=== PATIENT | female | born 2000 | race Caucasian/White ===

== ENCOUNTER 2019-06-10 10:36 | Inpatient (IN) | payer MEDICAID ==
--- NOTE | 2019-06-10 12:40 | PCM.LDHP ---
L&D History of Present Illness - General Date of Service: 06/10/19 Admit Problem/Dx: Patient Status Order with Admit Dx/Problem 06/10/19 10:45 Patient Status [ADT] Routine Admission Diagnosis/Problem Admission Diagnosis/Problem Source of Information: Patient History Limitations: Reports: No Limitations - History of Present Illness Improves with: Reports: None Worsens with: Reports: None Associated Symptoms: Reports: N - Related Data Allergies/Adverse Reactions: Allergies Allergy/AdvReac Type Severity Reaction Status Date / Time Sulfa (Sulfonamide Allergy Hives Verified 06/10/19 10:43 Antibiotics) Home Medications: Home Meds Vit #76/Iron,Carb/Fa [Pnv 29-1 Tablet] 1 tab PO DAILY 05/14/19 [History ] Sertraline [Zoloft] 100 mg PO DAILY 05/14/19 [History] H&P Review of Systems - Review of Systems: Review Of Systems: See Below General: Reports: No Symptoms HEENT: Reports: No Symptoms Pulmonary: Reports: No Symptoms Cardiovascular: Reports: No Symptoms Gastrointestinal: Reports: No Symptoms Genitourinary: Reports: No Symptoms Musculoskeletal: Reports: No Symptoms Skin: Reports: No Symptoms Psychiatric: Reports: No Symptoms Neurological: Reports: No Symptoms Hematologic/Lymphatic: Reports: No Symptoms Immunologic: Reports: No Symptoms L&D Exam - Exam Exam: See Below - Vital Signs Weight: 149.685 kg - OB Specific Contraction Intensity: Mild Movement: Active Heart Tones: Present Presentation: Vertex - Dickinson Score Dickinson Score Cervix Position: Midposition Dickinson Score Consistency: Medium Dickinson Score Effacement: 51-70% Dickinson Score Dilation: 1-2 cm Dickinson Score Infant's Station: -3 Dickinson Score Total: 5 - Exam General: Alert, Oriented HEENT: PERRLA, Conjunctiva Clear, EACs Clear, EOMI, Hearing Intact, Mucosa Moist & [place], Nares Patent, Normal Nasal Septum, Posterior Pharynx Clear, TMs Clear Neck: Supple, Trachea Midline Lungs: Clear to Auscultation, Normal Respiratory Effort Cardiovascular: Regular Rate, Regular Rhythm GI/Abdominal Exam: Normal Bowel Sounds, Soft, Non-Tender, No Organomegaly, No Distention, No Abnormal Bruit, No Mass, Pelvis Stable Rectal Exam: Normal Exam, Normal Rectal Tone Genitourinary: Normal external exam, Normal bimanual exam, Normal speculum exam Back Exam: Normal Inspection, Full Range of Motion Extremities: Normal Inspection, Normal Range of Motion, Non-Tender, No Pedal Edema, Normal Capillary Refill Skin: Warm, Dry, Intact Neurological: Cranial Nerves Intact, Reflexes Equal Bilateral Psychiatric: Alert, Normal Affect, Normal Mood Problem List Initiated/Reviewed/Updated: Yes Orders Last 24hrs: Active Orders 24 hr Category Date Time Status Patient Status [ADT] Routine ADT 06/10/19 10:45 Active Non Stress Test [RC] PER UNIT ROUTINE Care 06/10/19 10:45 Active Up ad Kalyn [RC] ASDIRECTED Care 06/10/19 10:45 Active Vaginal Exam [RC] Click to Edit Care 06/10/19 10:45 Active Vital Signs [RC] PER UNIT ROUTINE Care 06/10/19 10:45 Active Resuscitation Status Routine Resus Stat 06/10/19 10:45 Ordered Assessment/Plan Comment:: IUP 39+3 with SROM. plan to admit and start induction with Cytotec and Pitocin as per protocol.
[2019-06-10] MEDS ORDERED: Tranexamic Acid 1,000 MG in Sodium Chloride 0.9% 100 ML IV PRN (12:47)
[2019-06-10] MEDS ORDERED: Nalbuphine 10 MG/1 ML Vial IVPUSH PRN (12:47)
[2019-06-10] MEDS ORDERED: Methylergonovine 0.2 MG/1 ML Amp IM PRN (12:47)
[2019-06-10] MEDS ORDERED: Lidocaine 1% 50 ML MDV INJECT PRN (12:47)
[2019-06-10] MEDS ORDERED: Water For Irrigation,Sterile 1,000 ML Container IRR PRN (12:47)
[2019-06-10] MEDS ORDERED: Misoprostol 200 MCG Tab PO PRN (12:47)
[2019-06-10] MEDS ORDERED: Butorphanol 1 MG/ML SDV IVPUSH PRN (12:47)
[2019-06-10] MEDS ORDERED: Sodium Chloride 0.9% 10 ML Syringe FLUSH PRN (12:47)
[2019-06-10] MEDS ORDERED: Sodium Chloride 0.9% 10 ML SDV IV PRN (12:47)
[2019-06-10] MEDS ORDERED: Carboprost Tromethamine 250 MCG/1 ML Amp IM PRN (12:47)
[2019-06-10] MEDS ORDERED: Sodium Chloride 0.9% 2.5 ML Syringe FLUSH PRN (12:47)
[2019-06-10] MEDS ORDERED: Terbutaline 1 MG/ML SDV SUBCUT PRN (12:47)
[2019-06-10] MEDS ORDERED: Oxytocin/0.9 % Sodium Chloride 30 UNIT/500 ML BAG IV SCH ×2 (13:00)
[2019-06-10] MEDS: Lactated Ringers 1,000 ML IV SCH (13:45)
[2019-06-10] MEDS: Misoprostol 25 MCG (1/4 of 100 MCG) Tab PO PRN ×2 (13:55→18:21)
[2019-06-10] MEDS: Misoprostol 25 MCG (1/4 of 100 MCG) Tab VAG PRN ×2 (13:55→18:21)
[2019-06-11] MEDS: Lactated Ringers 1,000 ML IV SCH ×4 (03:36→18:07)
--- NOTE | 2019-06-11 04:39 | PCM.PREANE ---
Preanesthetic Assessment - Anesthesia/Transfusion/Family Hx Anesthesia History: No Prior Anesthesia Family History of Anesthesia Reaction: No Transfusion History: No Prior Transfusion(s) - Review of Systems General: No Symptoms Pulmonary: No Symptoms Cardiovascular: No Symptoms Gastrointestinal: No Symptoms Neurological: No Symptoms Other: Reports: None - Physical Assessment Height: 5 ft 3 in Weight: 149.685 kg ASA Class: 3 Mental Status: Alert & Oriented x3 Airway Class: Mallampati = 2 Dentition: Reports: Normal Dentition Thyro-Mental Finger Breadths: 3 Mouth Opening Finger Breadths: 3 ROM/Head Extension: Full Lungs: Clear to Auscultation, Normal Respiratory Effort Cardiovascular: Regular Rate, Regular Rhythm - Lab Values: Laboratory Last Values WBC 8.40 K/uL (4.0-11.0) 06/10/19 13:45 RBC 4.25 M/uL (4.30-5.90) L 06/10/19 13:45 Hgb 9.5 g/dL (12.0-16.0) L 06/10/19 13:45 Hct 31.5 % (36.0-46.0) L 06/10/19 13:45 MCV 74.1 fL (80.0-98.0) L 06/10/19 13:45 MCH 22.4 pg (27.0-32.0) L 06/10/19 13:45 MCHC 30.2 g/dL (31.0-37.0) L 06/10/19 13:45 RDW Std Deviation 42.6 fl (28.0-62.0) 06/10/19 13:45 RDW Coeff of Kay 16 % (11.0-15.0) H 06/10/19 13:45 Plt Count 357 K/uL (150-400) 06/10/19 13:45 MPV 9.20 fL (7.40-12.00) 06/10/19 13:45 Nucleated RBC % 0.0 /100WBC 06/10/19 13:45 Nucleated RBCs # 0 K/uL 06/10/19 13:45 Blood Type O POSITIVE 06/10/19 13:45 Antibody Screen NEGATIVE 06/10/19 13:45 Crossmatch See Detail 06/10/19 13:45 - Allergies Allergies/Adverse Reactions: Allergies Allergy/AdvReac Type Severity Reaction Status Date / Time Sulfa (Sulfonamide Allergy Hives Verified 06/10/19 10:43 Antibiotics) - Acknowledgements Anesthesia Type Planned: Epidural Pt an Appropriate Candidate for the Planned Anesthesia: Yes Alternatives and Risks of Anesthesia Discussed w Pt/Guardian: Yes Pt/Guardian Understands and Agrees with Anesthesia Plan: Yes PreAnesthesia Questionnaire - Past Health History Medical/Surgical History: Denies Medical/Surgical History HEENT History: Reports: Impaired Vision Cardiovascular History: Reports: None Respiratory History: Reports: None Gastrointestinal History: Reports: GERD Genitourinary History: Reports: None 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 Para: 0 LMP (Approximate): Musculoskeletal History: Reports: None Neurological History: Reports: None Psychiatric History: Reports: Anxiety, Depression Endocrine/Metabolic History: Reports: Obesity/BMI 30+ (Morbid Obesity) Hematologic History: Reports: Anemia Immunologic History: Reports: None Oncologic (Cancer) History: Reports: None Dermatologic History: Reports: None - Infectious Disease History Infectious Disease History: Reports: None - Past Surgical History HEENT Surgical History: Reports: None - HOME MEDS Home Medications: Home Meds Vit #76/Iron,Carb/Fa [Pnv 29-1 Tablet] 1 tab PO DAILY 05/14/19 [History ] Sertraline [Zoloft] 100 mg PO DAILY 05/14/19 [History] - CURRENT (IN HOUSE) MEDS Current Meds: Current Medications Butorphanol Tartrate (Stadol) 1 mg IVPUSH Q1H PRN PRN Reason: Pain Last Admin: 06/11/19 00:12 Dose: 1 mg Carboprost Tromethamine (Hemabate Ds) 250 mcg IM ASDIRECTED PRN PRN Reason: Post Hemorrhage Tranexamic Acid 1,000 mg/ (Sodium Chloride) 110 mls @ 660 mls/hr IV ONETIME PRN PRN Reason: Bleeding Lactated Ringer's (Ringers, Lactated) 1,000 mls @ 150 mls/hr IV ASDIRECTED QASIM Last Admin: 06/11/19 03:36 Dose: 999 mls/hr Oxytocin/Sodium Chloride (Oxytocin 30 Unit/500 Ml-Ns) 30 unit in 500 mls @ 999 mls/hr IV TITRATE QASIM Oxytocin/Sodium Chloride (Oxytocin 30 Unit/500 Ml-Ns) 30 unit in 500 mls @ 2 mls/hr IV TITRATE QASIM; Protocol Last Titration: 06/11/19 03:09 Dose: 4 munits/min, 4 mls/hr Lidocaine HCl (Xylocaine 1%) 50 ml INJECT ONETIME PRN PRN Reason: Laceration repair Methylergonovine Maleate (Methergine) 0.2 mg IM ASDIRECTED PRN PRN Reason: Post Hemorrhage Misoprostol (Cytotec) 200 mcg PO ONETIME PRN PRN Reason: Post Hemorrhage Misoprostol (Cytotec) 25 mcg PO Q4HR PRN PRN Reason: Cervical Ripening Last Admin: 06/10/19 18:21 Dose: 25 mcg Misoprostol (Cytotec) 25 mcg VAG Q4H PRN PRN Reason: Cervical Ripening Last Admin: 06/10/19 18:21 Dose: 25 mcg Nalbuphine HCl (Nubain) 10 mg IVPUSH Q1H PRN PRN Reason: Pain (severe 7-10) Sodium Chloride (Saline Flush) 10 ml FLUSH ASDIRECTED PRN PRN Reason: Keep Vein Open Sodium Chloride (Saline Flush) 2.5 ml FLUSH ASDIRECTED PRN PRN Reason: Keep Vein Open Sodium Chloride (Normal Saline) 10 ml IV ASDIRECTED PRN PRN Reason: IV Use Sterile Water (Sterile Water For Irrigation) 1,000 ml IRR ASDIRECTED PRN PRN Reason: delivery Terbutaline Sulfate (Brethine) 0.25 mg SUBCUT ASDIRECTED PRN PRN Reason: Tacysystole
[2019-06-11] MEDS ORDERED: ceFAZolin 1 GM in Premix Bag 1 BAG IV SCH (09:45)
[2019-06-11] MEDS ORDERED: Bupivacaine 0.5% 10 ML SDV ONE (14:44)
[2019-06-11] MEDS ORDERED: Citric Acid/Sodium Citrate Solution 30 ML Cup PO ONE (14:50)
[2019-06-11] MEDS ORDERED: ceFAZolin 1 GM Vial ONE (14:56)
[2019-06-11] MEDS ORDERED: Sodium Chloride 0.9% 20 ML ONE (14:56)
[2019-06-11] MEDS ORDERED: Ondansetron 4 MG/2 ML SDV ONE (14:57)
[2019-06-11] MEDS ORDERED: Oxytocin 10 Units/1 ML SDV ONE (15:06)
[2019-06-11] MEDS ORDERED: Morphine PF 10 MG/10 ML SDV ONE (15:25)
[2019-06-11] MEDS ORDERED: Acetaminophen/oxyCODONE 325-5 MG Tab PO PRN (15:27)
[2019-06-11] MEDS ORDERED: fentaNYL 100 MCG/2 ML SDV IVPUSH PRN (15:27)
[2019-06-11] MEDS ORDERED: Nalbuphine 10 MG/1 ML Vial IVPUSH PRN (15:27)
[2019-06-11] MEDS ORDERED: ePHEDrine 50 MG/ML SDV ONE (15:30)
[2019-06-11] MEDS ORDERED: Phenylephrine/Normal Saline 100 MCG/ML 10 ML Syringe ONE (15:35)
[2019-06-11] MEDS ORDERED: Bisacodyl 10 MG Supp RECTAL PRN (15:40)
[2019-06-11] MEDS ORDERED: Lanolin 100% Cream 7 GM Tube TOP PRN (15:40)
[2019-06-11] MEDS ORDERED: Ondansetron 4 MG/2 ML SDV IVPUSH PRN (15:40)
[2019-06-11] MEDS ORDERED: diphenhydrAMINE 50 MG/ML SDV IVPUSH PRN (15:40)
[2019-06-11] MEDS ORDERED: Octyl 2-Cyanoacrylate 1 Tube ONE (15:45)
--- NOTE | 2019-06-11 15:45 | PCM.OPNOTE ---
- General Post-Op/Procedure Note Date of Surgery/Procedure: 06/11/19 Operative Procedure(s): Primary C/section. Pre Op Diagnosis: IUP39+ prolong repture of the membren Post-Op Diagnosis: Same Anesthesia Technique: Epidural Primary Surgeon: Dimitri Chiu EBL in mLs: 600 Complications: None Condition: Good
[2019-06-11] MEDS: Ketorolac 30 MG/ML SDV IVPUSH SCH ×2 (16:25→21:37)
--- NOTE | 2019-06-11 16:42 | PCM.POSTAN ---
POST ANESTHESIA ASSESSMENT - MENTAL STATUS Mental Status: Alert, Oriented - VITAL SIGNS Vital Signs: Last Vital Signs Temp 97.7 F 06/11/19 15:58 Pulse 84 06/11/19 16:28 Resp 24 H 06/11/19 16:28 BP 114/65 06/11/19 16:28 Pulse Ox 96 06/11/19 16:28 - RESPIRATORY Respiratory Status: Respiratory Rate WNL, Airway Patent, O2 Saturation Stable - CARDIOVASCULAR CV Status: Pulse Rate WNL, Blood Pressure Stable - GASTROINTESTINAL GI Status: No Symptoms - PAIN Pain Score: 1 - POST OP HYDRATION Hydration Status: Adequate & Stable
--- NOTE | 2019-06-11 19:23 | OR ---
SURGEON: Dimitri Chiu MD DATE OF PROCEDURE: 06/11/2019 PREOPERATIVE DIAGNOSES: Intrauterine at 39+ weeks, prolonged rupture of the membrane, and failure to progress. POSTOPERATIVE DIAGNOSES: Intrauterine at 39+ weeks, prolonged rupture of the membrane, and failure to progress. OPERATION PERFORMED: Primary low-transverse section. PRIMARY SURGEON: Dimitri Chiu MD. CREATIVE RECRUITER: JAUN De La Torre. ANESTHESIA: Beck Davies and Dr. Santo. ESTIMATED BLOOD LOSS: 650 mL to 700 mL. COMPLICATIONS: None. FINDING: Female fetus. score reported to be 8 and 9. The weight is not available. Normal uterus, tubes, and ovaries. INDICATION FOR SURGERY: This patient is 19. She is primigravida. She is followed in our clinic primarily by our nurse psychiatric nurse. She had no complication. Her GBS status was negative. The patient admitted yesterday with confirmed rupture of the membrane. At the time of admission, she was 1 cm dilated, vertex, and -3. heart rate was category I. I used Cytotec to try to ripen the cervix since it was dilated 1 cm, 50% to 60%, vertex, and -3. After the cervix was dilated to 3 cm, we started Pitocin augmentation on the patient. The patient progressed to 4 to 5 cm, 90, vertex, and -3. She started having variable deceleration with each contraction. She was not tolerating the Pitocin, and by this time, she ruptured more than 36 hours, we started her on antibiotics. Because of the heart rate nonreassuring and she was remote from delivery and was failure to progress, a decision made to do a primary low-transverse section. PROCEDURE IN DETAIL: The patient was brought to the OR, properly identified, and after adequate level of epidural anesthesia, the patient was prepped and draped in sterile fashion as usual, Jenkins catheter already in the bladder. Low transverse Pfannenstiel skin incision was done. Anabelle's fascia and rectus fascia were opened in direction of the incision. The 2 recti muscles were and peritoneal cavity was entered. Bladder flap was raised in the usual manner pushing the bladder away from the lower uterine segment and then lower uterine incision, extended manually with the hand. Fetus was in occiput posterior vertex presentation, delivered without any problem, cried immediately. score later on reported to be 8 and 9, weight is not available. The placenta delivered spontaneous complete and intact and repair of the lower uterine segment was done with 2-0 Vicryl continuous interlocking in 2 layers. Reperitonealization done with 3-0 Vicryl continuous. Inspection of the lower uterine segment shows there was no oozing, no bleeding. The peritoneal cavity evacuated from all blood and blood clots and closed with 3-0 Vicryl continuous. The rectus fascia was closed with #1 PDS double strand continuous, the Anabelle's fascia with 3-0 Vicryl continuous, and the skin was closed with 3-0 Vicryl on a Ramos needle in a subcuticular fashion with Dermabond. Instrument and sponge count was correct. The patient tolerated the procedure well, went to recovery room in stable and general condition. BLOSSOM CHAVEZ /[id number]
[2019-06-11] MEDS: Docusate Sodium 100 MG Cap PO SCH (21:36)
[2019-06-11] MEDS ORDERED: Acetaminophen 500 MG Tab PO ONE (23:35)
[2019-06-12] MEDS: Lactated Ringers 1,000 ML IV SCH ×2 (01:27→07:04)
[2019-06-12] MEDS: Ketorolac 30 MG/ML SDV IVPUSH SCH ×3 (03:49→16:50)
--- NOTE | 2019-06-12 08:00 | PCM48HPAN ---
Post Anesthesia Note - EVALUATION WITHIN 48HRS OF ANESTHETIC Vital Signs in Normal Range: Yes Patient Participated in Evaluation: Yes Respiratory Function Stable: Yes (See comment below) Airway Patent: Yes Cardiovascular Function Stable: Yes Hydration Status Stable: Yes Pain Control Satisfactory: Yes Nausea and Vomiting Control Satisfactory: Yes Mental Status Recovered: Yes Vital Signs: Last Vital Signs Temp 36.6 C 06/12/19 04:00 Pulse 102 H 06/12/19 07:00 Resp 24 H 06/12/19 07:00 BP 113/78 06/12/19 04:00 Pulse Ox 95 06/12/19 07:00 - COMMENTS/OBSERVATIONS Free Text/Narrative:: Patient placed on continuous ETCO2 and SpO2 in ICU to monitor apnea. Per OB RN patient has had an episode of apnea while sleeping. To continue monitoring until discharge.
[2019-06-12] MEDS: Docusate Sodium 100 MG Cap PO SCH ×2 (09:45→20:18)
--- NOTE | 2019-06-12 15:01 | PCM.PNPP ---
- General Info Date of Service: 06/12/19 Functional Status: Reports: Pain Controlled - Review of Systems General: Reports: No Symptoms HEENT: Reports: No Symptoms Pulmonary: Reports: No Symptoms Cardiovascular: Reports: No Symptoms Gastrointestinal: Reports: No Symptoms Genitourinary: Reports: No Symptoms Musculoskeletal: Reports: No Symptoms Skin: Reports: No Symptoms Neurological: Reports: No Symptoms Psychiatric: Reports: No Symptoms - Patient Data Vital Signs - Most Recent: Last Vital Signs Temp 35.9 C 06/12/19 08:00 Pulse 116 H 06/12/19 11:00 Resp 24 H 06/12/19 14:00 BP 111/75 06/12/19 08:00 Pulse Ox 95 06/12/19 11:00 Weight - Most Recent: 149.685 kg I&O - Last 24 Hours: Intake & Output 06/11/19 06/12/19 06/12/19 22:59 06:59 14:59 Intake Total 1700 Output Total 100 400 Balance 1600 -400 Lab Results - Last 24 Hours: Laboratory Results - last 24 hr 06/12/19 Range/Units 04:45 Hgb 8.2 L (12.0-16.0) g/dL Hct 26.9 L (36.0-46.0) % Med Orders - Current: Current Medications Bisacodyl (Dulcolax) 10 mg RECTAL ONETIME PRN PRN Reason: Constipation Butorphanol Tartrate (Stadol) 1 mg IVPUSH Q1H PRN PRN Reason: Pain Last Admin: 06/11/19 00:12 Dose: 1 mg Carboprost Tromethamine (Hemabate Ds) 250 mcg IM ASDIRECTED PRN PRN Reason: Post Hemorrhage Diphenhydramine HCl (Benadryl) 25 mg IVPUSH Q6H PRN PRN Reason: Itching or Nausea Docusate Sodium (Colace) 100 mg PO BID QASIM Last Admin: 06/12/19 09:45 Dose: 100 mg Emollient Ointment (Lansinoh Hpa) 0 gm TOP ASDIRECTED PRN PRN Reason: Sore Nipples Fentanyl (Sublimaze) 50 mcg IVPUSH Q5M PRN PRN Reason: Pain (severe 7-10) Stop: 06/12/19 15:28 Tranexamic Acid 1,000 mg/ (Sodium Chloride) 110 mls @ 660 mls/hr IV ONETIME PRN PRN Reason: Bleeding Lactated Ringer's (Ringers, Lactated) 1,000 mls @ 150 mls/hr IV ASDIRECTED [facility] Last Admin: 06/11/19 12:56 Dose: 150 mls/hr Oxytocin/Sodium Chloride (Oxytocin 30 Unit/500 Ml-Ns) 30 unit in 500 mls @ 999 mls/hr IV TITRATE QASIM Oxytocin/Sodium Chloride (Oxytocin 30 Unit/500 Ml-Ns) 30 unit in 500 mls @ 2 mls/hr IV TITRATE [facility]; Protocol Last Titration: 06/11/19 14:24 Dose: 0 munits/min, 0 mls/hr Lactated Ringer's (Ringers, Lactated) 1,000 mls @ 125 mls/hr IV ASDIRECTED [facility] Last Admin: 06/12/19 07:04 Dose: 125 mls/hr Ibuprofen (Motrin) 800 mg PO Q8H PRN PRN Reason: mild pain or fever Ketorolac Tromethamine (Toradol) 30 mg IVPUSH Q6H [facility] Stop: 06/12/19 15:46 Last Admin: 06/12/19 09:46 Dose: 30 mg Lidocaine HCl (Xylocaine 1%) 50 ml INJECT ONETIME PRN PRN Reason: Laceration repair Methylergonovine Maleate (Methergine) 0.2 mg IM ASDIRECTED PRN PRN Reason: Post Hemorrhage Misoprostol (Cytotec) 200 mcg PO ONETIME PRN PRN Reason: Post Hemorrhage Misoprostol (Cytotec) 25 mcg PO Q4HR PRN PRN Reason: Cervical Ripening Last Admin: 06/10/19 18:21 Dose: 25 mcg Misoprostol (Cytotec) 25 mcg VAG Q4H PRN PRN Reason: Cervical Ripening Last Admin: 06/10/19 18:21 Dose: 25 mcg Nalbuphine HCl (Nubain) 10 mg IVPUSH Q1H PRN PRN Reason: Pain (severe 7-10) Nalbuphine HCl (Nubain) 2.5 mg IVPUSH Q3H PRN PRN Reason: Pruritis Stop: 06/12/19 15:28 Ondansetron HCl (Zofran) 4 mg IVPUSH Q4H PRN PRN Reason: Nausea/Vomiting Oxycodone/Acetaminophen (Percocet 325-5 Mg) 1 tab PO ONETIME PRN PRN Reason: Pain (moderate 4-6) Oxycodone/Acetaminophen (Percocet 325-5 Mg) 1 tab PO Q4H PRN PRN Reason: Pain (moderate 4-6) Oxycodone/Acetaminophen (Percocet 325-5 Mg) 2 tab PO Q4H PRN PRN Reason: Pain (moderate 4-6) Sodium Chloride (Saline Flush) 10 ml FLUSH ASDIRECTED PRN PRN Reason: Keep Vein Open Last Admin: 06/12/19 09:49 Dose: 10 ml Sodium Chloride (Saline Flush) 2.5 ml FLUSH ASDIRECTED PRN PRN Reason: Keep Vein Open Sodium Chloride (Normal Saline) 10 ml IV ASDIRECTED PRN PRN Reason: IV Use Sterile Water (Sterile Water For Irrigation) 1,000 ml IRR ASDIRECTED PRN PRN Reason: delivery Terbutaline Sulfate (Brethine) 0.25 mg SUBCUT ASDIRECTED PRN PRN Reason: Tacysystole Discontinued Medications Acetaminophen (Tylenol Extra Strength) 1,000 mg PO ONETIME ONE Stop: 06/11/19 23:36 Last Admin: 06/11/19 23:56 Dose: 1,000 mg Bupivacaine HCl (Sensorcaine-Mpf 0.5%) Confirm Administered Dose 20 ml .ROUTE .STK-MED ONE Stop: 06/11/19 14:45 Cefazolin Sodium (Ancef) Confirm Administered Dose 2 gm .ROUTE .STK-MED ONE Stop: 06/11/19 14:57 Citric Acid/Sodium Citrate (Bicitra Solution) 30 ml PO ONETIME ONE Stop: 06/11/19 14:51 Ephedrine Sulfate (Ephedrine Sulfate) Confirm Administered Dose 50 mg .ROUTE .STK-MED ONE Stop: 06/11/19 15:31 Fentanyl/Bupivacaine HCl (Idqhwcee-Vmtly-Sd 2 Mcg/Ml-0.125%) Confirm Administered Dose 100 mls @ as directed .ROUTE .STK-MED ONE Stop: 06/11/19 04:43 Cefazolin Sodium/Dextrose 1 gm (/ Premix) 50 mls @ 100 mls/hr IV Q6H QASIM Last Admin: 06/11/19 09:58 Dose: 100 mls/hr Sodium Chloride (Normal Saline) Confirm Administered Dose 20 mls @ as directed .ROUTE .STK-MED ONE Stop: 06/11/19 14:57 Morphine Sulfate (Duramorph Pf) Confirm Administered Dose 10 mg .ROUTE .STK-MED ONE Stop: 06/11/19 15:26 Octyl Cyanoacrylate (Dermabond Advance) Confirm Administered Dose 1 applic .ROUTE .STK-MED ONE Stop: 06/11/19 15:46 Ondansetron HCl (Zofran) Confirm Administered Dose 4 mg .ROUTE .STK-MED ONE Stop: 06/11/19 14:58 Oxytocin (Pitocin) Confirm Administered Dose 30 unit .ROUTE .STK-MED ONE Stop: 06/11/19 15:07 Phenylephrine HCl (Bebeto-Synephrine 0.25% Mild Nasal [place]) Confirm Administered Dose 15 ml .ROUTE .STK-MED ONE Stop: 06/11/19 15:29 Phenylephrine HCl (Phenylephrine In Ns 100 Mcg/Ml) Confirm Administered Dose 1 mg .ROUTE .STK-MED ONE Stop: 06/11/19 15:36 - Interaction Disposition, : in Room with Family Support Person: , Mother - Recovery Exam Fundal Tone: Firm Fundal Level: 2 Fingerbreadths Below Umbilicus Fundal Placement: Midline Lochia Amount: Small Lochia Color: Rubra/Red Perineum Description: Intact, Minimal Bruising/Swelling Episiotomy/Laceration: None Bladder Status: Indwelling Catheter in Place Urinary Elimination: Indwelling Catheter - Exam General: Alert, Oriented HEENT: Pupils Equal Neck: Supple Lungs: Clear to Auscultation, Normal Respiratory Effort Cardiovascular: Regular Rate, Regular Rhythm GI/Abdominal Exam: Normal Bowel Sounds, Soft, Non-Tender, No Organomegaly, No Distention, No Abnormal Bruit, No Mass, Pelvis Stable Extremities: Normal Inspection, Normal Range of Motion, Non-Tender, No Pedal Edema, Normal Capillary Refill Skin: Warm, Dry, Intact Wound/Incisions: Healing Well Neurological: No New Focal Deficit Psy/Mental Status: Alert, Normal Affect, Normal Mood - Problem List Review Problem List Initiated/Reviewed/Updated: Yes - My Orders Last 24 Hours: My Active Orders 06/11/19 14:50 Schedule Procedure [COMM] Per Unit Routine 06/11/19 14:53 Notify Provider Vital Signs [RC] PRN 06/11/19 15:40 Acetaminophen/oxyCODONE [Percocet 325-5 MG] 1 tab PO Q4H PRN Acetaminophen/oxyCODONE [Percocet 325-5 MG] 2 tab PO Q4H PRN Bisacodyl [Dulcolax] 10 mg RECTAL ONETIME PRN Ibuprofen [Motrin] 800 mg PO Q8H PRN Lanolin [Lansinoh HPA] See Dose Instructions TOP ASDIRECTED PRN Ondansetron [Zofran] 4 mg IVPUSH Q4H PRN diphenhydrAMINE [Benadryl] 25 mg IVPUSH Q6H PRN 06/11/19 15:41 Patient Status [ADT] Routine Ambulate [RC] PER UNIT ROUTINE Antiembolic Devices [RC] PER UNIT ROUTINE Communication Order [RC] PER UNIT ROUTINE Communication Order [RC] PER UNIT ROUTINE Communication Order [RC] Per Unit Routine May Shower [RC] ASDIRECTED RT Incentive Spirometry [RC] Q2HWA Assess Lochia [WOMSER] Per Unit Routine Assess Uterine Involution [WOMSER] Per Unit Routine Breast Pump [WOMSER] Per Unit Routine Peripheral IV Discontinue [OM.PC] Routine Sequential Compression Device [OM.PC] Per Unit Routine 06/11/19 15:45 Ketorolac [Toradol] 30 mg IVPUSH Q6H Lactated Ringers [Ringers, Lactated] 1,000 ml IV ASDIRECTED 06/11/19 21:00 Docusate Sodium [Colace] 100 mg PO BID 06/12/19 09:03 Transfer Patient (Change bed) [ADT] Routine 06/12/19 Breakfast Regular Diet [DIET] 06/12/19 Lunch Regular Diet [DIET] - Assessment Assessment:: Status post section for failure to progress and nonreassuring heart rate and postoperative day #1 the patient is doing well A normal lochia she is afebrile - Plan Plan:: IUP 39+3 with SROM. plan to admit and start induction with Cytotec and Pitocin as per protocol.
[2019-06-12] MEDS: Acetaminophen/oxyCODONE 325-5 MG Tab PO PRN ×2 (16:51→20:17)
[2019-06-13] MEDS: Acetaminophen/oxyCODONE 325-5 MG Tab PO PRN ×3 (00:18→17:44)
[2019-06-13] MEDS: Ibuprofen 800 MG Tab PO PRN ×2 (00:19→13:31)
--- NOTE | 2019-06-13 09:05 | PCM.DCSUM1 ---
Discharge Summary - Hospital Course Diagnosis: Stroke: No - Discharge Data Discharge Date: 06/13/19 Discharge Disposition: Home, Self-Care 01 Condition: Good - Patient Summary/Data Operative Procedure(s) Performed: Primary C/section. - Patient Instructions Diet: Usual Diet as Tolerated Activity: As Tolerated Driving: Do Not Drive Showering/Bathing: May Shower Wound/Incision Care: Keep Operative Site/Wound Site Clean and Dry - Discharge Plan Home Medications: Home Meds Vit #76/Iron,Carb/Fa [Pnv 29-1 Tablet] 1 tab PO DAILY 05/14/19 [History ] Sertraline [Zoloft] 100 mg PO DAILY 05/14/19 [History] Referrals: [facility] [Outside] Dimitri Chiu MD [Physician] - (1 week- June 19@ 9:30am w/ Dr. Chiu week- July 24@ 1:30pm w/ Dr. Chiu ) - Discharge Summary/Plan Comment DC Time >30 min.: Yes - General Info Date of Service: 05/31/19 Functional Status: Reports: Pain Controlled - Review of Systems General: Reports: No Symptoms HEENT: Reports: No Symptoms Pulmonary: Reports: No Symptoms Cardiovascular: Reports: No Symptoms Gastrointestinal: Reports: No Symptoms Genitourinary: Reports: No Symptoms Musculoskeletal: Reports: No Symptoms Skin: Reports: No Symptoms Neurological: Reports: No Symptoms Psychiatric: Reports: No Symptoms - Patient Data Vitals - Most Recent: Last Vital Signs Temp 36.8 C 06/13/19 05:35 Pulse 102 H 06/13/19 05:35 Resp 22 H 06/13/19 05:35 BP 130/83 06/13/19 05:35 Pulse Ox 95 06/13/19 05:35 Weight - Most Recent: 149.685 kg Lab Results - Last 24 hrs: Laboratory Results - last 24 hr 06/13/19 Range/Units 05:34 WBC 11.20 H (4.0-11.0) K/uL RBC 3.55 L (4.30-5.90) M/uL Hgb 7.8 L (12.0-16.0) g/dL Hct 26.4 L (36.0-46.0) % MCV 74.4 L (80.0-98.0) fL MCH 22.0 L (27.0-32.0) pg MCHC 29.5 L (31.0-37.0) g/dL RDW Std Deviation 44.1 (28.0-62.0) fl RDW Coeff of Kay 16 H (11.0-15.0) % Plt Count 296 (150-400) K/uL MPV 9.20 (7.40-12.00) fL Nucleated RBC % 0.0 /100WBC Nucleated RBCs # 0 K/uL Med Orders - Current: Current Medications Bisacodyl (Dulcolax) 10 mg RECTAL ONETIME PRN PRN Reason: Constipation Diphenhydramine HCl (Benadryl) 25 mg IVPUSH Q6H PRN PRN Reason: Itching or Nausea Docusate Sodium (Colace) 100 mg PO BID [facility] Last Admin: 06/12/19 20:18 Dose: 100 mg Emollient Ointment (Lansinoh Hpa) 0 gm TOP ASDIRECTED PRN PRN Reason: Sore Nipples Lactated Ringer's (Ringers, Lactated) 1,000 mls @ 125 mls/hr IV ASDIRECTED [facility] Last Admin: 06/12/19 07:04 Dose: 125 mls/hr Ibuprofen (Motrin) 800 mg PO Q8H PRN PRN Reason: mild pain or fever Last Admin: 06/13/19 00:19 Dose: 800 mg Ondansetron HCl (Zofran) 4 mg IVPUSH Q4H PRN PRN Reason: Nausea/Vomiting Oxycodone/Acetaminophen (Percocet 325-5 Mg) 1 tab PO Q4H PRN PRN Reason: Pain (moderate 4-6) Last Admin: 06/13/19 00:18 Dose: 1 tab Oxycodone/Acetaminophen (Percocet 325-5 Mg) 2 tab PO Q4H PRN PRN Reason: Pain (moderate 4-6) Last Admin: 06/12/19 20:17 Dose: 2 tab Sodium Chloride (Saline Flush) 10 ml FLUSH ASDIRECTED PRN PRN Reason: Keep Vein Open Last Admin: 06/12/19 09:49 Dose: 10 ml Sodium Chloride (Saline Flush) 2.5 ml FLUSH ASDIRECTED PRN PRN Reason: Keep Vein Open Discontinued Medications Acetaminophen (Tylenol Extra Strength) 1,000 mg PO ONETIME ONE Stop: 06/11/19 23:36 Last Admin: 06/11/19 23:56 Dose: 1,000 mg Bupivacaine HCl (Sensorcaine-Mpf 0.5%) Confirm Administered Dose 20 ml .ROUTE .STK-MED ONE Stop: 06/11/19 14:45 Butorphanol Tartrate (Stadol) 1 mg IVPUSH Q1H PRN PRN Reason: Pain Last Admin: 06/11/19 00:12 Dose: 1 mg Carboprost Tromethamine (Hemabate Ds) 250 mcg IM ASDIRECTED PRN PRN Reason: Post Hemorrhage Cefazolin Sodium (Ancef) Confirm Administered Dose 2 gm .ROUTE .STK-MED ONE Stop: 06/11/19 14:57 Citric Acid/Sodium Citrate (Bicitra Solution) 30 ml PO ONETIME ONE Stop: 06/11/19 14:51 Ephedrine Sulfate (Ephedrine Sulfate) Confirm Administered Dose 50 mg .ROUTE .STK-MED ONE Stop: 06/11/19 15:31 Fentanyl (Sublimaze) 50 mcg IVPUSH Q5M PRN PRN Reason: Pain (severe 7-10) Stop: 06/12/19 15:28 Tranexamic Acid 1,000 mg/ (Sodium Chloride) 110 mls @ 660 mls/hr IV ONETIME PRN PRN Reason: Bleeding Lactated Ringer's (Ringers, Lactated) 1,000 mls @ 150 mls/hr IV ASDIRECTED [facility] Last Admin: 06/11/19 12:56 Dose: 150 mls/hr Oxytocin/Sodium Chloride (Oxytocin 30 Unit/500 Ml-Ns) 30 unit in 500 mls @ 999 mls/hr IV TITRATE QASIM Oxytocin/Sodium Chloride (Oxytocin 30 Unit/500 Ml-Ns) 30 unit in 500 mls @ 2 mls/hr IV TITRATE QASIM; Protocol Last Titration: 06/11/19 14:24 Dose: 0 munits/min, 0 mls/hr Fentanyl/Bupivacaine HCl (Ojzjsrgc-Phoue-Fa 2 Mcg/Ml-0.125%) Confirm Administered Dose 100 mls @ as directed .ROUTE .STK-MED ONE Stop: 06/11/19 04:43 Cefazolin Sodium/Dextrose 1 gm (/ Premix) 50 mls @ 100 mls/hr IV Q6H [facility]ASIM Last Admin: 06/11/19 09:58 Dose: 100 mls/hr Sodium Chloride (Normal Saline) Confirm Administered Dose 20 mls @ as directed .ROUTE .STK-MED ONE Stop: 06/11/19 14:57 Ketorolac Tromethamine (Toradol) 30 mg IVPUSH Q6H [facility] Stop: 06/12/19 15:46 Last Admin: 06/12/19 16:50 Dose: 30 mg Lidocaine HCl (Xylocaine 1%) 50 ml INJECT ONETIME PRN PRN Reason: Laceration repair Methylergonovine Maleate (Methergine) 0.2 mg IM ASDIRECTED PRN PRN Reason: Post Hemorrhage Misoprostol (Cytotec) 200 mcg PO ONETIME PRN PRN Reason: Post Hemorrhage Misoprostol (Cytotec) 25 mcg PO Q4HR PRN PRN Reason: Cervical Ripening Last Admin: 06/10/19 18:21 Dose: 25 mcg Misoprostol (Cytotec) 25 mcg VAG Q4H PRN PRN Reason: Cervical Ripening Last Admin: 06/10/19 18:21 Dose: 25 mcg Morphine Sulfate (Duramorph Pf) Confirm Administered Dose 10 mg .ROUTE .STK-MED ONE Stop: 06/11/19 15:26 Nalbuphine HCl (Nubain) 10 mg IVPUSH Q1H PRN PRN Reason: Pain (severe 7-10) Nalbuphine HCl (Nubain) 2.5 mg IVPUSH Q3H PRN PRN Reason: Pruritis Stop: 06/12/19 15:28 Octyl Cyanoacrylate (Dermabond Advance) Confirm Administered Dose 1 applic .ROUTE .STK-MED ONE Stop: 06/11/19 15:46 Ondansetron HCl (Zofran) Confirm Administered Dose 4 mg .ROUTE .STK-MED ONE Stop: 06/11/19 14:58 Oxycodone/Acetaminophen (Percocet 325-5 Mg) 1 tab PO ONETIME PRN PRN Reason: Pain (moderate 4-6) Oxytocin (Pitocin) Confirm Administered Dose 30 unit .ROUTE .STK-MED ONE Stop: 06/11/19 15:07 Phenylephrine HCl (Bebeto-Synephrine 0.25% Mild Nasal [place]) Confirm Administered Dose 15 ml .ROUTE .STK-MED ONE Stop: 06/11/19 15:29 Phenylephrine HCl (Phenylephrine In Ns 100 Mcg/Ml) Confirm Administered Dose 1 mg .ROUTE .STK-MED ONE Stop: 06/11/19 15:36 Sodium Chloride (Normal Saline) 10 ml IV ASDIRECTED PRN PRN Reason: IV Use Sterile Water (Sterile Water For Irrigation) 1,000 ml IRR ASDIRECTED PRN PRN Reason: delivery Terbutaline Sulfate (Brethine) 0.25 mg SUBCUT ASDIRECTED PRN PRN Reason: Tacysystole - Exam General: Reports: Alert, Oriented HEENT: Reports: Pupils Equal, Pupils Reactive, EOMI, Mucous Membr. Moist/[place] Neck: Reports: Supple Lungs: Reports: Clear to Auscultation, Normal Respiratory Effort Cardiovascular: Reports: Regular Rate, Regular Rhythm GI/Abdominal Exam: Normal Bowel Sounds, Soft, Non-Tender, No Organomegaly, No Distention, No Abnormal Bruit, No Mass, Pelvis Stable (Female) Exam: Normal External Exam, Normal Speculum Exam, Normal Bimanual Exam Rectal (Female) Exam: Normal Exam, Normal Rectal Tone Back Exam: Reports: Normal Inspection, Full Range of Motion Extremities: Normal Inspection, Normal Range of Motion, Non-Tender, No Pedal Edema, Normal Capillary Refill Skin: Reports: Warm, Dry, Intact Wound/Incisions: Reports: Healing Well Neurological: Reports: No New Focal Deficit Psy/Mental Status: Reports: Alert, Normal Affect, Normal Mood
== END 2019-06-13 19:30 | disposition home or self-care (01) | DRG 788 ==
LOC: MW.OB 10:36 → MW.OBCHECK 10:36 → MW.OB 11:14 → MW.OBCHECK 11:14 → OBSVTOIN 06-11 15:21 → MW.ICU 06-11 21:16 → MW.OB 06-12 09:21
PROVIDERS: ADMIT Obstetrics & Gynecology; ATTEND Obstetrics & Gynecology
PROC: 10D00Z1 Extraction of Products of Conception, Low, Open Approach (ICD-10-PCS; principal; 2019-06-11)
DX: O76 Abnormality in fetal heart rate and rhythm complicating labor and delivery (principal); E66.01 Morbid (severe) obesity due to excess calories; O99.214 Obesity complicating childbirth; Z3A.39 39 weeks gestation of pregnancy; Z37.0 Single live birth
CPT/HCPCS: 36415; 59025; 85014; 85018; 85027; 86850; 86900; 86901; 86920; 86921; 86922; A9270-GY; J0595; J0690; J1885; J2270; J2370; J2405; J2590; J3490; J7120

== ENCOUNTER 2023-11-16 01:38 | Emergency (ER) | payer MEDICAID, OTHER, SELFPAY ==
[2023-11-16] MEDS ORDERED: Naloxone 0.4 MG/ML SDV IVPUSH PRN (01:58)
[2023-11-16] MEDS ORDERED: Ondansetron 4 MG/2 ML SDV IVPUSH ONE (01:58)
[2023-11-16] MEDS ORDERED: Famotidine 20 MG/2 ML SDV IVPUSH ONE (01:58)
[2023-11-16] MEDS ORDERED: Morphine 4 MG/ML Syringe IVPUSH ONE (01:58)
[2023-11-16] MEDS ORDERED: Sodium Chloride 0.9% 10 ML Syringe FLUSH PRN (01:58)
[2023-11-16] MEDS ORDERED: Sodium Chloride 0.9% 2.5 ML Syringe FLUSH PRN (01:58)
[2023-11-16 02:10] LABS: BASOPHILS ABSOLUTE AUTO 0.02 K/uL (0.00-0.20); BASOPHILS PERCENT AUTO 0.2 % (0.0-1.0); EOSINOPHILS ABSOLUTE AUTO 0.28 K/uL (0.00-0.45); EOSINOPHILS PERCENT AUTO 3.2 % (0.0-6.0); HEMATOCRIT 37.4 % (37.0-47.0); HEMOGLOBIN 11.3 g/dL (12.0-16.0); IMMATURE GRAN ABSOLUTE AUTO 0.02 K/uL (0.00-0.05); IMMATURE GRAN PERCENT AUTO 0.2 % (0.0-0.4); LYMPHOCYTES ABSOLUTE AUTO 2.08 K/uL (1.00-4.80); LYMPHOCYTES PERCENT AUTO 23.9 % (24.0-44.0); MEAN CORPUSCULAR HEMOGLOBIN 23.7 pg (28.0-32.0); MEAN CORPUSCULAR HGB CONC 30.2 g/dL (32.0-36.0); MEAN CORPUSCULAR VOLUME 78.4 fL (83.0-99.0); MEAN PLATELET VOLUME 9.4 fL (9.4-12.3); MONOCYTES ABSOLUTE AUTO 0.49 K/uL (0.00-0.80); MONOCYTES PERCENT AUTO 5.6 % (0.0-8.0); NEUTROPHILS ABSOLUTE AUTO 5.81 K/uL (1.80-7.70); NEUTROPHILS PERCENT AUTO 66.9 % (41.0-71.0); PLATELET COUNT,PLT 400 K/uL (150-400); RED BLOOD CELL COUNT 4.77 M/uL (4.10-5.30)
[2023-11-16 02:25] LABS: BILIRUBIN,URINE NEGATIVE (NEGATIVE); COLOR,URINE YELLOW; GLUCOSE,URINE NEGATIVE (NEGATIVE); KETONES,URINE TRACE mg/dL (NEGATIVE); LEUKOCYTE ESTERASE,URINE NEGATIVE (NEGATIVE); NITRITE,URINE NEGATIVE (NEGATIVE); OCCULT BLOOD,URINE NEGATIVE (NEGATIVE); PROTEIN,URINE NEGATIVE (NEGATIVE); UROBILINOGEN,URINE 0.2 EU/dL (<2.0)
[2023-11-16 02:33] LABS: APPEARANCE,URINE HAZY
[2023-11-16 02:35] LABS: A/G RATIO 0.8 (0.9-1.6); ALBUMIN 3.2 g/dL (3.4-5.0); BILIRUBIN TOTAL 0.3 mg/dL (0.2-1.0); CALCIUM 8.8 mg/dL (8.5-10.1); CARBON DIOXIDE,CO2 28.9 mmol/L (21.0-32.0); CREATININE 0.8 mg/dL (0.6-1.0); EST CRCL DRUG DOSING (CG) 88.93 mL/min; POTASSIUM,K 3.5 mmol/L (3.5-5.1); PROTEIN TOTAL,TP 7.3 g/dL (6.4-8.2)
[2023-11-16 03:06] LABS: CANDIDA DNA PROBE NEGATIVE (NEGATIVE); GARDNERELLA DNA PROBE POSITIVE (NEGATIVE); TRICHOMONAS DNA PROBE POSITIVE (NEGATIVE)
[2023-11-16] MEDS ORDERED: Iopamidol 755 MG/ML 500 ML Multipack Bottle IVPUSH STA (03:12)
[2023-11-16] MEDS ORDERED: cefTRIAXone 500 MG in Sodium Chloride 0.9% 50 ML IV ONE (04:20)
[2023-11-16] MEDS ORDERED: cefTRIAXone 500 MG Vial ONE (04:22)
[2023-11-16] MEDS ORDERED: Sodium Chloride 0.9% 50 ML ONE (04:22)
[2023-11-17 11:07] LABS: C.TRACHOMATIS BY TMA Negative (Negative); N.GONORRHOEAE BY TMA Negative (Negative); SOURCE ENDOCERVICAL
== END 2023-11-16 05:01 | disposition home or self-care (01) ==
LOC: MW.ED 01:38
DX: K42.9 Umbilical hernia without obstruction or gangrene (principal); N76.0 Acute vaginitis; A59.01 Trichomonal vulvovaginitis; Z20.2 Contact with and (suspected) exposure to infections with a predominantly sexual mode of transmission; K21.9 Gastro-esophageal reflux disease without esophagitis; E66.9 Obesity, unspecified; Z79.899 Other long term (current) drug therapy; Z68.42 Body mass index [BMI] 45.0-49.9, adult
CPT/HCPCS: 36415; 74177; 80053; 81003; 83690; 84703; 85025; 87480; 87491; 87510; 87591; 87660; 96365; 96375; 99284; J0696; J2270; J2405; J3490; Q9967

== ENCOUNTER 2025-03-27 21:21 | Emergency (ER) | payer MEDICAID, OTHER ==
[2025-03-27] MEDS: Ketorolac 30 MG/ML SDV IM ONE (22:20)
== END 2025-03-27 23:10 | disposition home or self-care (01) ==
LOC: MW.ED 21:21
DX: O9A.219 Injury, poisoning and certain other consequences of external causes complicating pregnancy, unspecified trimester (principal); S09.90XA Unspecified injury of head, initial encounter; Z79.899 Other long term (current) drug therapy; K21.9 Gastro-esophageal reflux disease without esophagitis; Z88.2 Allergy status to sulfonamides; Z3A.09 9 weeks gestation of pregnancy; Y04.8XXA Assault by other bodily force, initial encounter
CPT/HCPCS: 70450; 70450-26; 81025; 99284; J1885